=== PATIENT | male | born 1995 | race Hispanic/Latino ===

== ENCOUNTER 2019-10-01 13:29 | Emergency (ER) | payer MEDICAID ==
--- NOTE | 2019-10-01 14:00 | Emergency Department Report ---
HPI - General Chief Complaint: Psych Time Seen by Provider: 10/01/19 13:44 - HPI HPI: Room 3 The patient is a 23-year-old male present with a chief complaint of suicidal ideation. The patient states he got into an argument with his caregiver and threatened to jump out of the window. The patient states he opened up the second floor window but never actually attempted to jump because he got scared. The patient states he then went to the kitchen to get a knife but the caregiver stopped him ED Past Medical Hx - Past Medical History Previous Medical History?: Yes Hx Psychiatric Treatment: Yes (depression) - Surgical History Past Surgical History?: No - Family History Family history: no significant - Social History Smoking Status: Never Smoker Substance Use Type: None (Denies illicit drug use) ED Review of Systems ROS: Stated complaint: MENTAL HEALTH EVAL Other details as noted in HPI Constitutional: no symptoms reported Respiratory: no symptoms reported Endocrine: no symptoms reported Psychiatric: suicidal thoughts Physical Exam - Physical Exam Vital Signs: Vital Signs 10/01/19 10/01/19 13:31 13:47 Temperature 98.8 F 99 F Pulse Rate 85 73 Respiratory 16 20 Rate Blood Pressure 118/73 Blood Pressure 105/67 [Right] O2 Sat by Pulse 98 100 Oximetry Physical Exam: GENERAL: The patient is well-nourished male sitting on stretcher not appearing to be in acute distress. [] HEENT: Normocephalic. Atraumatic. Extraocular motions are intact. Patient has moist mucous membranes. NECK: Supple. Trachea midline CHEST/LUNGS: Clear to auscultation. There is no respiratory distress noted. HEART/CARDIOVASCULAR: Regular. There is no tachycardia. There is no gallop rub or murmur. ABDOMEN: Abdomen is soft, nontender. Patient has normal bowel sounds. There is no abdominal distention. SKIN: There is no rash. There is no edema. There is no diaphoresis. NEURO: The patient is awake, alert, and oriented. The patient is cooperative. The patient has normal speech MUSCULOSKELETAL: There is no evidence of acute injury. ED Course Vital Signs 10/01/19 10/01/19 13:31 13:47 Temperature 98.8 F 99 F Pulse Rate 85 73 Respiratory 16 20 Rate Blood Pressure 118/73 Blood Pressure 105/67 [Right] O2 Sat by Pulse 98 100 Oximetry ED Medical Decision Making - Lab Data Result diagrams: 10/01/19 14:23 10/01/19 14:23 Laboratory Tests 10/01/19 10/01/19 10/01/19 14:23 14:23 14:23 WBC 6.4 RBC 4.77 Hgb 14.9 Hct 43.3 MCV 91 MCH 31 MCHC 35 H RDW 13.2 Plt Count 187 Lymph % (Auto) 29.6 Morton % (Auto) 9.0 H Eos % (Auto) 0.7 Baso % (Auto) 0.2 Lymph # 1.9 Morton # 0.6 Eos # 0.0 Baso # 0.0 Seg Neutrophils % 60.5 Seg Neutrophils # 3.9 Sodium 140 Potassium 3.8 Chloride 102.6 Carbon Dioxide 26 Anion Gap 15 BUN 10 Creatinine 0.7 L Estimated GFR > 60 BUN/Creatinine Ratio 14 Glucose 106 H Calcium 9.5 Total Bilirubin 0.30 AST 14 ALT 11 Alkaline Phosphatase 83 Total Protein 7.5 Albumin 4.7 Albumin/Globulin Ratio 1.7 Salicylates < 0.3 L Acetaminophen Plasma/Serum Alcohol 10/01/19 10/01/19 14:23 14:23 WBC RBC Hgb Hct MCV MCH MCHC RDW Plt Count Lymph % (Auto) Morton % (Auto) Eos % (Auto) Baso % (Auto) Lymph # Morton # Eos # Baso # Seg Neutrophils % Seg Neutrophils # Sodium Potassium Chloride Carbon Dioxide Anion Gap BUN Creatinine Estimated GFR BUN/Creatinine Ratio Glucose Calcium Total Bilirubin AST ALT Alkaline Phosphatase Total Protein Albumin Albumin/Globulin Ratio Salicylates Acetaminophen < 5.0 L Plasma/Serum Alcohol < 0.01 - Differential Diagnosis Adjustment disorder, suicidal ideation Critical care attestation.: If time is entered above; I have spent that time in minutes in the direct care of this critically ill patient, excluding procedure time. ED Disposition Clinical Impression: Suicidal ideation Disposition: [id number]/TX-65 PSY HOSP/PSY UNIT Is pt being admited?: No Does the pt Need Aspirin: No Condition: Fair Time of Disposition: 15:31 (Awaiting acceptance)
[2019-10-01 14:34] LABS: Basophils % (Auto) 0.2 % (0.0-1.8); Eosinophils % (Auto) 0.7 % (0.0-4.3); Hemoglobin 14.9 gm/dl (11.8-15.2); Lymphocytes # (Auto) 1.9 K/mm3 (1.2-5.4); Lymphocytes % (Auto) 29.6 % (13.4-35.0); Monocytes # (Auto) 0.6 K/mm3 (0.0-0.8)
[2019-10-01 14:39] LABS: Hematocrit 43.3 % (35.5-45.6); Mean Corpuscular HGB Conc 35 % (32-34); Mean Corpuscular Volume 91 fl (84-94); Platelet Count 187 K/mm3 (140-440); Red Blood Count 4.77 M/mm3 (3.65-5.03); Red Cell Distribution Width 13.2 % (13.2-15.2)
[2019-10-01 14:56] LABS: Alanine Aminotransferase 11 units/L (7-56); Albumin 4.7 g/dL (3.9-5); BUN/Creatinine Ratio 14; Blood Urea Nitrogen 10 mg/dL (9-20); Calcium 9.5 mg/dL (8.4-10.2); Hemolysis Index 15
[2019-10-01 16:03] LABS: Amphetamine Screen,Urine PRESUMPTIVE NEGATIVE; Benzodiazepines Screen,Urine PRESUMPTIVE NEGATIVE; Cannabinoid Screen,Urine PRESUMPTIVE NEGATIVE; Cocaine Screen,Urine PRESUMPTIVE NEGATIVE; Methadone Screen,Urine PRESUMPTIVE NEGATIVE; Opiate Screen,Urine PRESUMPTIVE NEGATIVE
[2019-10-01 16:11] LABS: Bilirubin,Urine NEG (Negative); Color,Urine Yellow (Yellow)
[2019-10-01 16:12] LABS: Bacteria,Urine 1+ /HPF (Negative); Blood,Urine NEG (Negative); Mucus,Urine FEW /HPF; Protein,Urine <15 mg/dL mg/dL (Negative); Urobilinogen,Urine < 2.0 mg/dL (<2.0)
[2019-10-01] MEDS ORDERED: ZIPRASIDONE MESYLATE 20 MG VIAL IM ONE (16:44)
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
[2019-10-02 12:00] VITALS: BP 116/62
--- NOTE | 2019-10-02 14:08 | Consultation ---
History of Present Illness - Reason for Consult Consult date: 10/02/19 Reason for consult: SI - History of Present Psychiatric Illness Yamil Oconnell is a 23y/o male patient who was brought to the ER because he says he "threatened to jump out of a window." The patient is a/o x 3. He is cooperative. He denies SI/HI. The patient states he told his halfway that "because they kept threatening to call the [facility]." He then says, "I'm scared of [facility] [employer]." He denies hallucinations of any kind. He says "I feel good. It's just that the people at my halfway was making things worse." He denies any illicit drug use, stating "I never done drugs." He also denies any alcohol or nicotine use. PAST PSYCHIATRIC HISTORY: Diagnoses: Autism Suicide attempts or Self-harm behavior: Denies Prior psychiatric hospitalizations: Once Substance Abuse history: Denies Previous psychiatric medications tried: could not recall Outpatient treatment: yes PAST MEDICAL HISTORY: None reported Family Psychiatric History: None reported SOCIAL HISTORY Marital Status: Single Living Arrangements: [facility] Employment Status: Disabled Access to guns/weapons: Denies Education: 10th grade History of Abuse: Denies Legal History: Yes REVIEW OF SYSTEMS Constitutional: Negative for weight loss ENT: Negative for stridor Respiratory: Negative for cough or hemoptysis All other systems reviewed and are negative MENTAL STATUS EXAMINATION General Appearance: Dressed appropriately Behavior:Cooperative. Good eye contact Mood: Good Affect: Congruent with stated mood Speech: Normal tone and pace Thought Process: Goal directed Thought Content: Suicidal Ideation: Denies Homicidal Ideation: Denies Hallucinations: Denies Delusions: None elicited Insight and Judgment: Limited Memory/Cognition: Limited Assessment Unspecified Mood Disorder Plan D/c 1013 No scripts given Sitter: Defer to primary Medical: Per primary Disposition: The patient does note meets the criteria for acute inpatient psychiatric treatment. He may discharge back to halfway once medically clear. The patient understands that if suicidal or self harm thoughts or any feelings of endangerment are to arise he is to seek immediate assistance including but not limited to the crisis hotline, 911 or/and the ER. He should follow up with primary or out patient psychiatry in 7 to 14 days. The logistics service representative to give the patient recourses for out patient and drug rehabilitation programs. The treatment plan and medications. He verbalizes understanding. Thank you for this consult. Medications and Allergies Allergies Allergy/AdvReac Type Severity Reaction Status Date / Time azithromycin Allergy Angioedema Verified 10/01/19 13:35 haloperidol [From Haldol] Allergy Angioedema Verified 10/01/19 13:35 lorazepam [From Ativan] AdvReac Unknown Verified 10/01/19 13:35 Mental Status Exam - Vital signs Last Vital Signs Temp 98.5 F 10/02/19 08:00 Pulse 82 10/02/19 08:00 Resp 18 10/02/19 08:00 BP 116/62 10/02/19 08:00 Pulse Ox 98 10/02/19 08:00 Results Result Diagrams: 10/01/19 14:23 10/01/19 14:23 Abnormal lab results 10/01/19 10/01/19 10/01/19 Range/Units 14:23 14:23 14:23 MCHC 35 H (32-34) % Price % (Auto) 9.0 H (0.0-7.3) % Creatinine 0.7 L (0.8-1.5) mg/dL Glucose 106 H (75-100) mg/dL Salicylates < 0.3 L (2.8-20.0) mg/dL Acetaminophen (10.0-30.0) ug/mL 10/01/19 Range/Units 14:23 MCHC (32-34) % Price % (Auto) (0.0-7.3) % Creatinine (0.8-1.5) mg/dL Glucose (75-100) mg/dL Salicylates (2.8-20.0) mg/dL Acetaminophen < 5.0 L (10.0-30.0) ug/mL All other labs normal.
== END 2019-10-02 15:39 | disposition home or self-care (01) ==
LOC: EEVIPCON 13:29 → ED 13:29
DX: R45.851 Suicidal ideations (principal); F32.89 Other specified depressive episodes; Z88.1 Allergy status to other antibiotic agents; Z88.6 Allergy status to analgesic agent
CPT/HCPCS: 36415; 80053; 80307; 81001; 85025; 99284; J3486; 80320; G0480